=== PATIENT | female | born 1965 | race Caucasian/White ===

== ENCOUNTER 2016-05-21 16:40 | Emergency (ER) | payer OTHER ==
[~2016-05-21] VITALS: Ht 166.4 cm; Wt 59.6 kg
[2016-05-21 16:42] VITALS: TEMP 36.5; Ht 166.4 cm; Wt 59.6 kg
[2016-05-21 17:35] VITALS: O2SAT 97
--- NOTE | 2016-05-21 18:17 | EMERGENCY ROOM VISIT NOTE ---
History Report prepared by Santana: Tae Martinez Under the Supervision of: Dr. Guero Stevens M.D. First contact with patient: 17:11 Chief Complaint: OTHER COMPLAINT Stated Complaint: ELEVATED HEART RATE, PAIN W/BREATHING,SOB-REFERRED History of Present Illness The patient is a 50 year old female who presents to the Emergency Room with complaints of persistent shortness of breath beginning two weeks prior to arrival. She currently rates her discomfort as a 3/10 in severity and was referred to the ED by [facility]. The patient associates an occasional cough, nasal congestion, sore throat, nasal drainage, headache, generalized weakness, fatigue, intermittent heart burn, and intermittent vomiting with today's symptoms. She states she went to [place] for her shortness of breath on May 10 and was sent home with azithromycin and prednisone. The patient notes her shortness of breath occurs at rest and with exertion. She states she has had an intermittent headache over the past three days. The patient notes she has experienced her heartburn over the past three days. She states the heartburn begins in the center of her chest and radiates to her throat with a bad taste. The patient notes vomiting helps to relieve her heart burn. She also complains of intermittent bilateral upper extremity tingling. The patient notes her right foot has felt cold for the past couple of months. She denies being evaluated for her cold food or upper extremity tingling. The patient denies a fever, chills, calf tenderness, diarrhea, urinary symptoms, and recent long travel. She notes she is an every day smoker. Source of History: patient, spouse/significant other Onset: two weeks [employer] Position: other (global) Symptom Intensity: 3/10 Quality: other (SOB) Timing: other (persistent) Associated Symptoms: + cough, + fatigue, + headache, + sorethroat, + vomiting (intermittent), + weakness (generalized), No chills, No diarrhea, No fevers, No urinary symptoms Note: Associated symptoms: nasal congestion, nasal drainage, intermittent heart burn, intermittent bilateral upper extremity tingling, right foot coldness. Review of Systems See HPI for pertinent positives & negatives. A total of 10 systems reviewed and were otherwise negative. Past Medical & Surgical Medical Problems: (1) Bulimia Old medical records were reviewed. Nurse's notes were reviewed and I agree with. Family History FHx: cancer Social History Smoking Status: Current Every Day Smoker Marital Status: single Occupation Status: employed Current/Historical Medications Scheduled PRN Albuterol (Ventolin Hfa), 2 PUFFS INH UD PRN for SOB/Wheezing Baclofen (Lioresal), 10 MG PO TID PRN for Abdominal Pain Lisdexamfetamine Dimesylate (Vyvanse), 40 MG PO DAILY PRN for Bulimia Meloxicam (Mobic), 1 TAB PO DAILY PRN for Pain Allergies Coded Allergies: Aspirin (Verified Allergy, Intermediate, Hives, 05/21/16) Physical Exam Vital Signs Date Time Temp Pulse Resp B/P Pulse Ox O2 Delivery O2 Flow Rate FiO2 05/21/16 20:30 70 16 127/83 98 05/21/16 18:31 93 112/82 95 Room Air 05/21/16 18:00 92 18 121/82 93 Room Air 05/21/16 17:59 95 05/21/16 17:35 97 Room Air 05/21/16 16:42 36.5 113 18 140/87 98 Room Air Physical Exam General: Mildly uncomfortable appearing. Middle aged female. No acute distress. HEENT: Normal cephalic atraumatic. Pupils are equal round and reactive to light. Extraocular movements are intact. Oropharynx is pink with moist mucous membranes. No swelling of the mouth lips or tongue. Neck: Supple with a midline trachea. No meningeal signs or stiffness, no JVD or bruits. No Stridor. Chest: Clear to auscultation bilaterally. No wheezes or rhonchi. No increased work of breathing. Heart: regular rate and rhythm. Abdomen: Soft nontender, nondistended without rebound guarding or rigidity. Extremities: No cyanosis clubbing or edema. No calf tenderness or assymetry Spine/Back. Non tender to palpation. No CVA tenderness Skin: Good turgor without rashes. Neurologic exam: Cranial nerves two through 12 are intact. Motor and sensation are intact and symmetrical throughout. Medical Decision & Procedures ER Provider Diagnostic Interpretation: Radiology results as stated below per my review and radiologist interpretation: CHEST ONE VIEW PORTABLE CLINICAL HISTORY: Atypical chest pain COMPARISON STUDY: No previous studies for comparison. FINDINGS: The cardiac and mediastinal contours are normal. There is no evidence of focal pulmonary consolidation. There is no evidence of failure. No pleural effusions are visualized.[ IMPRESSION: No active disease in the chest. Electronically signed by: Demar Gunn M.D. 05/21/2016 6:[address] HEAD WITHOUT CONTRAST (CT) CLINICAL HISTORY: Severe headache and weakness COMPARISON STUDY: No previous studies for comparison. TECHNIQUE: Axial CT of the brain is performed from the vertex to the skull base. IV contrast was not administered for this examination. CT DOSE: 537.48 mGy.cm FINDINGS: No intra or extra-axial mass lesions are visualized. There is no CT evidence of acute cortical infarction. There is no evidence of midline shift. There is no acute hemorrhage. No calvarial fractures are visualized. There is no evidence of pathologic ventricular dilatation. There is no evidence of acute sinusitis IMPRESSION: Normal noncontrast head CT for age Electronically signed by: Demar Gunn M.D. 05/21/2016 7:05 PM Laboratory Results 05/21/16 17:30 Red Blood Count 5.14, Mean Corpuscular Volume 89.3, Mean Corpuscular Hemoglobin 31.3, Mean Corpuscular Hemoglobin Concent 35.1, Mean Platelet Volume 10.4, Neutrophils (%) (Auto) 59.1, Lymphocytes (%) (Auto) 32.9, Monocytes (%) (Auto) 5.8, Eosinophils (%) (Auto) 1.8, Basophils (%) (Auto) 0.4, Neutrophils # (Auto) 4.37, Lymphocytes # (Auto) 2.43, Monocytes # (Auto) 0.43, Eosinophils # (Auto) 0.13, Basophils # (Auto) 0.03 05/21/16 17:30 Test 05/21/16 17:30 05/21/16 18:15 White Blood Count 7.39 K/uL (4.8-10.8) Red Blood Count 5.14 M/uL (4.2-5.4) Hemoglobin 16.1 g/dL (12.0-16.0) Hematocrit 45.9 % (37-47) Mean Corpuscular Volume 89.3 fL (80-100) Mean Corpuscular Hemoglobin 31.3 pg (25-34) Mean Corpuscular Hemoglobin Concent 35.1 g/dl (32-36) Platelet Count 381 K/uL (130-400) Mean Platelet Volume 10.4 fL (7.4-10.4) Neutrophils (%) (Auto) 59.1 % Lymphocytes (%) (Auto) 32.9 % Monocytes (%) (Auto) 5.8 % Eosinophils (%) (Auto) 1.8 % Basophils (%) (Auto) 0.4 % Neutrophils # (Auto) 4.37 K/uL (1.4-6.5) Lymphocytes # (Auto) 2.43 K/uL (1.2-3.4) Monocytes # (Auto) 0.43 K/uL (0.11-0.59) Eosinophils # (Auto) 0.13 K/uL (0-0.5) Basophils # (Auto) 0.03 K/uL (0-0.2) RDW Standard Deviation 42.7 fL (36.4-46.3) RDW Coefficient of Variation 13.0 % (11.5-14.5) Immature Granulocyte % (Auto) 0.0 % Immature Granulocyte # (Auto) 0.00 K/uL (0.00-0.02) Anion Gap 11.0 mmol/L (3-11) Est Creatinine Clear Calc Drug Dose 61.1 ml/min Estimated GFR () 75.5 Estimated GFR (Non- 65.2 BUN/Creatinine Ratio 15.4 (10-20) Calcium Level 9.5 mg/dl (8.5-10.1) Magnesium Level 2.4 mg/dl (1.8-2.4) Total Bilirubin 0.5 mg/dl (0.2-1) Direct Bilirubin mg/dl (0-0.2) Aspartate Amino Transf (AST/SGOT) 21 U/L (15-37) Alanine Aminotransferase (ALT/SGPT) 39 U/L (12-78) Alkaline Phosphatase 72 U/L (45-117) Total Creatine Kinase 63 U/L (26-192) Creatine Kinase MB < 0.5 ng/ml (0.5-3.6) Creatine Kinase MB Ratio (0-3.0) Total Protein 8.0 gm/dl (6.4-8.2) Albumin 4.3 gm/dl (3.4-5.0) Lipase 147 U/L (73-393) Thyroid Stimulating Hormone (TSH) 1.080 uIu/ml (0.300-4.500) Chemistry Specimen Hemolysis Bedside D-Dimer 142 ng/mlFEU (0-450) Bedside Troponin I 0.000 ng/ml (0-0.045) Laboratory studies as stated above per my review. ECG Indication: SOB/dyspnea Rate (beats per minute): 104 Rhythm: sinus tachycardia Findings: no acute ischemic change, no ectopy Comparison ECG Date: no prior available Change: Repeat EKG: Normal sinus rhythm. Rate 89. Nonspeicfic-ST abnormalities. No acute ischemia. No significant change when compared to EKG #1. ED Course 1747: Past medical records reviewed. The patient was evaluated in room B6, and a complete history and physical examination were performed. 1948: Reevaluated the patient at this time, and she is doing well. 2017: Upon reevaluation, the patient is doing well. I discussed the results and treatment plan with her. She verbalized agreement of the treatment plan. The patient was discharged home. Medical Decision Differentials include, but are not limited to; PE, arrhythmia, anxiety, thyroid disease, infection, electrolyte or metabolic abnormalities. This patient comes in as described above. She has multiple different complaints. The main complaint today's seems to be she has some right-sided chest pain. It is worse with movement breathing and movement. She also has other issues that have been going on for a while such as a cold feeling in her right foot and numbness intermittently in her arms bilaterally. She also has bulimia although that been doing okay lately, although she did have some vomiting recently. IV access was established, EKG, chest x-ray multiple blood testing was obtained. Chest x-ray does not show congestive heart failure, pneumonia or pneumothorax. EKG was unremarkable and shows nothing to suggest acute coronary syndrome or cardiac event. EKG #2 was also unremarkable. She has no significant change compared EKG #1. Her cardiac biomarkers are normal and makes cardiac disease highly unlikely given her ongoing symptoms for a while. Her d-dimer is well within normal limits and a low pretest probability makes PE highly unlikely. She has no acute electrolyte or metabolic abnormalities. Thyroid TSH is normal. CT of her head was unremarkable and shows no acute findings. This may be more costochondritis. She is to use either anti-inflammatories or or Tylenol but do not exceed the [id number] recommended dosages for Tylenol/acetaminophen and do not take with other products contain acetaminophen. She should return if: worsening of symptoms, shortness of breath, increasing pain, fever or chills, any new problems or concerns. She should have close follow-up with her regular doctor and may need further outpatient testing. Impression Primary Impression: Right-sided chest pain Additional Impression: Weakness Scribe Attestation The scribe's documentation has been prepared under my direction and personally reviewed by me in its entirety. I confirm that the note above accurately reflects all work, treatment, procedures, and medical decision making performed by me. Departure Information Dispostion Home / Self-Care Referrals Jett Donnelly M.D. (PCP) Forms HOME CARE DOCUMENTATION FORM, IMPORTANT VISIT INFORMATION, WORK / SCHOOL INSTRUCTIONS Patient Instructions My [facility] Additional Instructions Rest. Drink plenty of fluids. Follow-up with your doctor this week for recheck. You will need further testing. May use acetaminophen/Tylenol a maximum of 650 mg every 6 hours if needed. Do not take with any other medications that contain acetaminophen/Tylenol Return if: Worsening of symptoms, increasing pain, shortness of breath, fever chills, any new problems concerns Problem Qualifiers
[2016-05-21] MEDS ORDERED: PRVHFAIN INH (18:24)
[2016-05-21] MEDS ORDERED: MELO7.5T5 PO (18:24)
[2016-05-21] MEDS ORDERED: BACL10TA PO (18:24)
[2016-05-21] MEDS ORDERED: LISD40CA PO (18:24)
--- NOTE | 2016-05-21 18:27 | DIAGNOSTIC IMAGING REPORT ---
CHEST ONE VIEW PORTABLE CLINICAL HISTORY: Atypical chest pain COMPARISON STUDY: No previous studies for comparison. FINDINGS: The cardiac and mediastinal contours are normal. There is no evidence of focal pulmonary consolidation. There is no evidence of failure. No pleural effusions are visualized.[ IMPRESSION: No active disease in the chest. Electronically signed by: Demar Gunn M.D. 05/21/2016 6:24 PM Dictated Date/Time: 05/21/2016 6:24 PM
[2016-05-21 18:30] LABS: ALKALINE PHOSPHATASE 72 U/L (45-117); ALT/SGPT 39 U/L (12-78); AST/SGOT 21 U/L (15-37); BLOOD UREA NITROGEN 15 mg/dl (7-18); BUN/CREATININE RATIO 15.4 (10-20); CALCIUM 9.5 mg/dl (8.5-10.1); CARBON DIOXIDE 27 mmol/L (21-32); CHLORIDE 100 mmol/L (98-107); GLUCOSE 96 mg/dl (70-99); MAGNESIUM 2.4 mg/dl (1.8-2.4); POTASSIUM 4.3 mmol/L (3.5-5.1); SODIUM 138 mmol/L (136-145)
[2016-05-21 18:50] LABS: BASO % 0.4 %; BASO ABS # 0.03 K/uL (0-0.2); COMPLETE YES; EOS % 1.8 %; HEMATOCRIT 45.9 % (37-47); LYMPH % 32.9 %; LYMPH ABS # 2.43 K/uL (1.2-3.4); MEAN CELL VOLUME 89.3 fL (80-100); MEAN CORPUSCULAR HEMOGLOBIN 31.3 pg (25-34); MEAN CORPUSCULAR HGB CONC 35.1 g/dl (32-36); MEAN PLATELET VOLUME 10.4 fL (7.4-10.4); MONO % 5.8 %; NEUT % 59.1 %; PLATELET COUNT 381 K/uL (130-400); RED BLOOD COUNT 5.14 M/uL (4.2-5.4); WHITE BLOOD COUNT 7.39 K/uL (4.8-10.8)
--- NOTE | 2016-05-21 19:07 | DIAGNOSTIC IMAGING REPORT ---
CT HEAD WITHOUT CONTRAST (CT) CLINICAL HISTORY: Severe headache and weakness COMPARISON STUDY: No previous studies for comparison. TECHNIQUE: Axial CT of the brain is performed from the vertex to the skull base. IV contrast was not administered for this examination. CT DOSE: 537.48 mGy.cm FINDINGS: No intra or extra-axial mass lesions are visualized. There is no CT evidence of acute cortical infarction. There is no evidence of midline shift. There is no acute hemorrhage. No calvarial fractures are visualized. There is no evidence of pathologic ventricular dilatation. There is no evidence of acute sinusitis IMPRESSION: Normal noncontrast head CT for age Electronically signed by: Demar Gunn M.D. 05/21/2016 7:05 PM Dictated Date/Time: 05/21/2016 7:04 PM
[2016-05-21 20:30] VITALS: BP 127/83; PULSE 70; O2SAT 98
== END 2016-05-21 20:35 | disposition home or self-care (01) ==
LOC: C.EDB 16:42
DX: R07.9 Chest pain, unspecified (principal); R53.1 Weakness; F50.2 Bulimia nervosa; F17.200 Nicotine dependence, unspecified, uncomplicated